=== PATIENT | male | born 1960 | race Asian ===

== ENCOUNTER 2020-06-25 18:54 | Emergency (ER) | payer BC ==
[~2020-06-25] VITALS: Ht 167.6 cm; Wt 73.5 kg
[~2020-06-25 18:54] MED LIST: CARDURA PO
[2020-06-25 19:15] VITALS: BP_SYST 156
--- NOTE | 2020-06-25 19:22 | NUR ---
Patient to ER bed 2 to gown for evaluation. Side rails up. Report given to DENISE Reed.
--- NOTE | 2020-06-25 19:30 | NUR ---
PATIENT IS AWAKE AND ALERT. PT C/O OF LACERATION TO FINGER ON LEFT HAND. FINGER CLEANED BY EMT, NO ACTIVE BLEEDING NOTED. PAIN STATED 07/26. NO OTHER COMPLAINTS AT THIS TIME. WILL CONTINUE TO MONITOR.
--- NOTE | 2020-06-25 19:35 | NUR ---
ER MD FLORES AT BEDSIDE EXAMINING PATIENT.
[2020-06-25] MEDS ORDERED: BACITRACIN 1 GM OINT TP ONE (19:45)
[2020-06-25] MEDS ORDERED: DIPH-TET-PERTUS Vaccine 0.5 ML VIAL (ADACEL) I.M. ONE (19:45)
[2020-06-25] MEDS ORDERED: LIDOCAINE 1% 10 MG/ML, 20 ML MDV INJ ONE (19:45)
--- NOTE | 2020-06-25 20:00 | NUR ---
Patient has a 1 cm laceration to LEFT HAND FINGER. Dr. FLORES applied sutures using sterile technique. Edges well approximated. Site cleansed with BEDADINE. Dressing of FINGER ON LEFT HAND applied to site. No bleeding noted. Pt tolerated well.
[2020-06-25 20:17] VITALS: BP_SYST 156
--- NOTE | 2020-06-25 20:17 | NUR ---
Patient given written and verbal discharge instructions and verbalizes understanding. ER MD FLORES discussed with patient the results and treatment provided. Patient in stable condition. ID arm band removed. Patient educated on pain management and to follow up with PMD. Pain Scale 2/10. Opportunity for questions provided and answered. Medication side effect fact sheet provided.
== END 2020-06-25 20:17 | disposition home or self-care (01) ==
LOC: SED 18:54
DX: S61.213A Laceration without foreign body of left middle finger without damage to nail, initial encounter (principal); I10 Essential (primary) hypertension; W26.0XXA Contact with knife, initial encounter; Y93.89 Activity, other specified; Y92.89 Other specified places as the place of occurrence of the external cause; Y99.8 Other external cause status
CPT/HCPCS: 12001; 90471; 90715; 99283; J2001; J7030